=== PATIENT | female | born 1970 | race African-American/Black ===

== ENCOUNTER 2019-09-11 10:27 | Emergency (ER) | payer MEDICAID ==
[~2019-09-11] VITALS: Ht 162.6 cm; Wt 79.0 kg
[2019-09-11 11:41] LABS: BASOPHILS % 0.7 % (0.0-2.0); EOSINOPHILS % 1.2 % (0.0-5.0); HEMATOCRIT. 40.8 % (36.0-48.0); HEMOGLOBIN. 13.8 g/dL (12.0-16.0); LYMPHOCYTES % 13.1 % (20.0-50.0); MEAN CORPUSCULAR HEMOGLOBIN 29.8 pg (28.0-32.0); MEAN CORPUSCULAR VOLUME 87.8 fL (81.0-99.0); PLATELET 283 x1000/uL (130-400); RED BLOOD CELL COUNT 4.65 mill/uL (4.2-5.4); RED CELL DISTRIBUTION WIDTH 13.4 % (11.6-14.6)
[2019-09-11 11:48] LABS: CHLORIDE 106 mEq/L (98-107)
[2019-09-11] MEDS ORDERED: AMLODIPINE 10MG TABLET PO ONE (12:00)
[2019-09-11] MEDS ORDERED: DOXYCYCLINE HYCLATE 100MG CAPSULE PO ONE (13:30)
[2019-09-11] MEDS ORDERED: LABETALOL HCL 100MG TABLET PO ONE (14:30)
[2019-09-11 14:51] VITALS: BP 187/84
== END 2019-09-11 14:51 | disposition home or self-care (01) ==
LOC: ER 10:50
DX: J40 Bronchitis, not specified as acute or chronic (principal); I10 Essential (primary) hypertension; R07.89 Other chest pain; R09.81 Nasal congestion; J34.89 Other specified disorders of nose and nasal sinuses; Z86.11 Personal history of tuberculosis; Z91.14 Patient's other noncompliance with medication regimen
CPT/HCPCS: 36415; 71045; 83880; 84484; 93005; 99284